=== PATIENT | female | born 1995 | race African-American/Black ===

== ENCOUNTER 2018-02-26 01:21 | Emergency (ER) | payer SELFPAY ==
[2018-02-26] MEDS ORDERED: NA CHLORIDE 0.9% 1,000 ML ONE (02:06)
[2018-02-26 02:29] LABS: Absolute Lymphocytes (CBC) 2.2 K/uL (0.7-4.9); Absolute Monocytes 0.4 K/uL (0.1-1.3); Absolute Neutrophil 5.9 K/uL (1.8-8.0); Basophils % 0.3 % (0-1.3); Eosinophils % 0.6 % (0-4.4); Lymphocytes % 25.9 % (15.3-44.8); MCH 27.3 pg (27.0-35.0); MCV 83.9 fL (80-100); MPV 8.4 fL (7.6-11.3); Monocytes % 4.7 % (3.3-12.3); RBC Red Blood Cell Count 5.12 M/uL (3.86-4.86)
[2018-02-26 02:39] LABS: Urine Bacteria >50 /HPF (<20); Urine Culture Reflex Order NOT NEEDED; Urine Mucus LIGHT /HPF (NONE SEEN); Urine RBC <5 /HPF (NONE SEEN)
[2018-02-26 02:43] LABS: BUN Blood Urea Nitrogen 9 mg/dL (7-18); Bicarbonate 28 mmol/L (21-32); Glucose Level 73 mg/dL (74-106); Potassium 3.5 mmol/L (3.5-5.1); Sodium Level 139 mmol/L (136-145)
--- NOTE | 2018-02-26 02:48 | EDPHYS ---
Physician Documentation [facility] Name: Rama Ortiz Age: 22 yrs Sex: Female : 1995 Arrival Date: 02/26/2018 Time: : Bed 7 Private MD: ED Physician Alex Andrade HPI: 02/26 01:49 This 22 yrs old Black Female presents to ER via Ambulatory with complaints of Left Side snw of body Pain. 01:49 Onset: The symptoms/episode began/occurred suddenly. Associated signs and symptoms: snw Pertinent positives: congestion, cough, headache, bodyaches, pain to left side of body for 3 weeks, worse today. It is unknown whether or not the patient has had similar symptoms in the past. It is unknown whether or not the patient has recently seen a physician. Mom states she has also had cough and congestion. 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 - Social history:: Smoking status: Patient/guardian denies using tobacco, Patient/guardian denies using alcohol, street drugs. - Ebola Screening: : No symptoms or risks identified at this time. ROS: 01:49 Eyes: Negative for injury, pain, redness, and discharge, ENT: Negative for injury, snw pain, and discharge, Neck: Negative for injury, pain, and swelling, Cardiovascular: Negative for chest pain, palpitations, and edema, Respiratory: Negative for shortness of breath, cough, wheezing, and pleuritic chest pain. 01:49 Back: Negative for injury and pain, : Negative for injury, bleeding, discharge, and swelling, MS/Extremity: Negative for injury and deformity, Skin: Negative for injury, rash, and discoloration. 01:49 Constitutional: Positive for body aches, malaise, poor PO intake. 01:49 Abdomen/GI: Positive for vomiting, x 1 this am. 01:49 Neuro: Positive for shooting pain from left side of head to toes, skin tender to touch over foot today. Exam: 01:48 Head/Face: Normocephalic, atraumatic. Eyes: Pupils equal round and reactive to light, snw extra-ocular motions intact. Lids and lashes normal. Conjunctiva and sclera are non-icteric and not injected. Cornea within normal limits. Periorbital areas with no swelling, redness, or edema. ENT: Nares patent. No nasal discharge, no septal abnormalities noted. Tympanic membranes are normal and external auditory canals are clear. Oropharynx with no redness, swelling, or masses, exudates, or evidence of obstruction, uvula midline. Mucous membranes moist. Neck: Trachea midline, no thyromegaly or masses palpated, and no cervical lymphadenopathy. Supple, full range of motion without nuchal rigidity, or vertebral point tenderness. No Meningismus. Chest/axilla: Normal chest wall appearance and motion. Nontender with no deformity. No lesions are appreciated. Respiratory: Lungs have equal breath sounds bilaterally, clear to auscultation and percussion. No rales, rhonchi or wheezes noted. No increased work of breathing, no retractions or nasal flaring. Abdomen/GI: Soft, non-tender, with normal bowel sounds. No distension or tympany. No guarding or rebound. No evidence of tenderness throughout. Back: No spinal tenderness. No costovertebral tenderness. Full range of motion. Skin: Warm, dry with normal turgor. Normal color with no rashes, no lesions, and no evidence of cellulitis. MS/ Extremity: Pulses equal, no cyanosis. Neurovascular intact. Full, normal range of motion. Neuro: Awake and alert, GCS 15, oriented to person, place, time, and situation. Cranial nerves II-XII grossly intact. Motor strength 5/5 in all extremities. Sensory grossly intact. Cerebellar exam normal. Normal gait. Psych: Awake, alert, with orientation to person, place and time. Behavior, mood, and affect are within normal limits. 01:48 Constitutional: The patient appears alert, awake, anxious, uncomfortable. 01:48 Cardiovascular: Rate: tachycardic, Rhythm: regular. Vital Signs: 01:49 BP 125 / 85; Pulse 100; Resp 16 S; Temp 98.4(O); Pulse Ox 99% on R/A; Weight 66.68 kg bb (R); Height 5 ft. 2 in. (157.48 cm) (R); Pain 8/10; 03:13 BP 102 / 67; Pulse 87; Resp 16; Pulse Ox 100% on R/A; ak1 01:49 Body Mass Index 26.89 (66.68 kg, 157.48 cm) bb MDM: 01:43 Patient medically screened. snw 02:53 Data reviewed: vital signs, nurses notes. Data interpreted: Pulse oximetry: on room air snw is 99 %. Interpretation: normal. Counseling: I had a detailed discussion with the patient and/or guardian regarding: the historical points, exam findings, and any diagnostic results supporting the discharge/admit diagnosis, the presence of at least one elevated blood pressure reading (>120/80) during this emergency department visit, lab results, the need for outpatient follow up, for definitive care, to return to the emergency department if symptoms worsen or persist or if there are any questions or concerns that arise at home. Special discussion: I have referred the patient to see his PCP for further evaluation of high blood pressure. Based on the history and exam findings, there is no indication for further emergent testing or inpatient evaluation. I discussed with the patient/guardian the need to see the primary care provider for further evaluation of the symptoms. 02/26 01:48 Order name: Chem 7; Complete Time: 02:47 snw 02/26 01:48 Order name: CBC with Diff; Complete Time: 02:35 snw 02/26 01:48 Order name: Jenkins Screen Profile; Complete Time: 02:42 snw 02/26 01:48 Order name: Urine Culture [facility] 02/26 01:48 Order name: Urine Microscopic Only; Complete Time: 02:40 snw 02/26 02:21 Order name: Urine Dipstick--Ancillary (enter results) ms 02/26 01:48 Order name: Urine Test (obtain specimen); Complete Time: 02:19 snw 02/26 01:48 Order name: Urine Dipstick-Ancillary (obtain specimen); Complete Time: 02:19 snw 02/26 02:21 Order name: Urine --Ancillary (enter results) ms Administered Medications: 02:16 Drug: NS 0.9% 1000 ml Route: IV; Rate: 1 bolus; Site: right antecubital; ak1 03:11 Follow up: IV Status: Completed infusion ak1 02:56 Drug: Rocephin 1 grams Route: IV; Rate: calculated rate; Site: right antecubital; ak1 03:11 Follow up: IV Status: Completed infusion ak1 Disposition: 06:47 Co-signature as Attending Physician, Alex Andrade MD. rn Disposition: 02/26/18 02:48 Discharged to Home. Impression: Urinary tract infection, site not specified. - Condition is Stable. - Discharge Instructions: Muscle Pain, Adult, Urinary Tract Infection. - Prescriptions for Mobic 7.5 mg Oral Tablet - take 1 tablet by ORAL route once daily take with food; 20 tablet. cefpodoxime 100 mg Oral Tablet - take 1 tablet by ORAL route every 12 hours for 10 days take with food; 20 tablet. - Medication Reconciliation Form, Thank You Letter, Antibiotic Education, Prescription Opioid Use form. - Follow up: Private Physician; When: 2 - 3 days; Reason: Recheck today's complaints, Continuance of care, Re-evaluation by your physician. Follow up: Emergency Department; When: As needed; Reason: Worsening of condition. Signatures: Dispatcher [employer] EDKY Melanie Vega, LILLIAN-C CRITICAL CARE NURSE-Csnw Julieth Flynn, RN RN Alex Bermudez MD MD rn Krenek, Amber RN RN ak1 Corrections: (The following items were deleted from the chart) 03:16 02:48 02/26/2018 02:48 Discharged to Home. Impression: Urinary tract infection, site ak1 not specified. Condition is Stable. Forms are Medication Reconciliation Form, Thank You Letter, Antibiotic Education, Prescription Opioid Use. Follow up: Private Physician; When: 2 - 3 days; Reason: Recheck today's complaints, Continuance of care, Re-evaluation by your physician. Follow up: Emergency Department; When: As needed; Reason: Worsening of condition. snw
--- NOTE | 2018-02-26 02:48 | ER ---
Nurse's Notes [facility] Name: Rama Ortiz Age: 22 yrs Sex: Female : 1995 Arrival Date: 02/26/2018 Time: 01:26 Bed 7 Private MD: Diagnosis: Urinary tract infection, site not specified Presentation: 02/26 01:44 Presenting complaint: Patient states: she is having a headache for several weeks and bb today started having sharp pains on the outer left side of her body she feels nauseous and vomited once today. Pt recently weaned herself off of her depression medicine Zoloft, pt has hx of migraines. Transition of care: patient was not received from another setting of care. Onset of symptoms is unknown. Risk Assessment: Do you want to hurt yourself or someone else? Patient reports no desire to harm self or others. Initial Sepsis Screen: Does the patient meet any 2 criteria? No. Patient's initial sepsis screen is negative. Does the patient have a suspected source of infection? No. Patient's initial sepsis screen is negative. Care prior to arrival: None. 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 - Social history:: Smoking status: Patient/guardian denies using tobacco, Patient/guardian denies using alcohol, street drugs. - Ebola Screening: : No symptoms or risks identified at this time. Screenin:52 Abuse screen: Denies threats or abuse. Denies injuries from another. Nutritional lp1 screening: No deficits noted. Tuberculosis screening: No symptoms or risk factors identified. Fall Risk None identified. Assessment: 01:48 General: Appears in no apparent distress. Behavior is appropriate for age. Pain: lp1 Complains of pain in left arm and left leg, left side of face. Neuro: Level of Consciousness is awake, alert, obeys commands, Oriented to person, place, situation, Solutions Operator are equal bilaterally Moves all extremities. Full function Pupils are PERRLA, Intact. Cardiovascular: Patient's skin is warm and dry. Respiratory: Respiratory effort is even, unlabored. GI: No signs and/or symptoms were reported involving the gastrointestinal system. : No signs and/or symptoms were reported regarding the genitourinary system. EENT: No signs and/or symptoms were reported regarding the EENT system. Derm: Skin is pink, warm \T\ dry. Musculoskeletal: Circulation, motion, and sensation intact. Vital Signs: 01:49 BP 125 / 85; Pulse 100; Resp 16 S; Temp 98.4(O); Pulse Ox 99% on R/A; Weight 66.68 kg bb (R); Height 5 ft. 2 in. (157.48 cm) (R); Pain 8/10; 03:13 BP 102 / 67; Pulse 87; Resp 16; Pulse Ox 100% on R/A; ak1 01:49 Body Mass Index 26.89 (66.68 kg, 157.48 cm) ED Course: 01:26 Patient arrived in ED. ds1 01:40 Hodan Becerra RN is Primary Nurse. lp1 01:41 Melanie Vega FNP-C is PHCP. snw 01:41 Alex Andrade MD is Attending Physician. snw 01:48 Triage completed. bb 01:49 Arm band placed on Patient placed in an exam room, on a stretcher, on pulse oximetry. bb Family accompanied patient. 01:53 Patient has correct armband on for positive identification. Pulse ox on. NIBP on. lp1 02:19 Inserted saline lock: 20 gauge in right antecubital area, using aseptic technique. lp1 Blood collected. 02:19 Urine collected: clean catch specimen, alvin colored. lp1 03:12 No provider procedures requiring assistance completed. IV discontinued, intact, ak1 bleeding controlled, No redness/swelling at site. Pressure dressing applied. Administered Medications: 02:16 Drug: NS 0.9% 1000 ml Route: IV; Rate: 1 bolus; Site: right antecubital; ak1 03:11 Follow up: IV Status: Completed infusion ak1 02:56 Drug: Rocephin 1 grams Route: IV; Rate: calculated rate; Site: right antecubital; ak1 03:11 Follow up: IV Status: Completed infusion ak1 Outcome: 02:48 Discharge ordered by . snw 03:15 Discharged to home ambulatory, with family. ak1 03:15 Condition: good 03:15 Discharge instructions given to patient, family, Instructed on discharge instructions, follow up and referral plans. no drinking with medication, no driving heavy equipment, medication usage, Demonstrated understanding of instructions, follow-up care, medications, Prescriptions given X 2. 03:16 Patient left the ED. ak1 Signatures: Melanie Vega, SHANK SANDER-C SHANK SANDER-Csnw Radha Gage ds1 Julieth Flynn, RN RN bb Hodan Becerra, RN RN lp1 Alvin Payan RN RN ak1
[2018-02-26] MEDS ORDERED: CEFTRIAXONE/SWI 1gm 1 GM/10 ML SYR ONE (02:55)
[2018-02-26 03:53] LABS: Urine Blood TRACE (NEG); Urine Glucose NEGATIVE (NEG); Urine Protein TRACE (NEG); Urine Specific Gravity 1.025 (1.005-1.030)
== END 2018-02-26 03:16 | disposition home or self-care (01) ==
LOC: ER 01:21
DX: N39.0 Urinary tract infection, site not specified (principal)
CPT/HCPCS: 36415; 80048; 81003; 81015; 81025; 85025; 86308; 87086; 87088; 96361; 96374; 99284; J0696; J7030